=== PATIENT | female | born 1950 | race Caucasian/White ===

== ENCOUNTER 2020-07-17 13:51 | Outpatient (CLI) | payer MEDICARE, OTHER ==
[~2020-07-17] VITALS: Ht 175.3 cm; Wt 78.0 kg
[~2020-07-17 13:51] MED LIST: ACCUPRIL20 MG PO; ALBUTEROL2.5 MG/3 M INH; ALDACTONE25 MG PO; ALLEGRA ALLERG180 MG PO; CALTRATE 600 +1 EAC1 PO; CLARITIN10 MG PO; COLACE 100MG C100 MG PO; COREG 3.125M3.125 MG PO; DURAGESIC 12 M1 EACH TP; EVISTA60 MG PO; FISH OIL CONC1000 MG PO; FLAGYL500 MG PO; K-DUR TAB 20 M20 MEQ PO; LASIX40 MG PO; LIPITOR TAB 2020 MG PO; NEURONTIN 300300 MG PO; NORCO 5-325 TA1 EACH PO; ONCE DAILY1 EACH PO; PROTONIX 40 MG40 M1 PO; SPIRIVA RESPIMAT4 GM INH; SPIRIVA18 MCG INH; SYMBICORT 160-1 INHA INH; ULTRAM50 MG PO; VITAMIN D31000 UNI1 PO
[2020-07-17 14:28] LABS: HEMOGLOBIN 7.5 gm/dl (12.3-15.3)
== END 2020-07-17 23:52 | disposition home or self-care (01) ==
LOC: OPSV 13:51 → MED SURG 4 17:06 → OPSV 23:52
PROVIDERS: Internal Medicine
DX: D64.9 Anemia, unspecified (principal)
CPT/HCPCS: 36430; 85014; 85018; 86850; 86900; 86901; 86920; P9016

== ENCOUNTER 2020-08-26 21:41 | Inpatient (IN) | payer MEDICARE, SELFPAY ==
[~2020-08-26] VITALS: Ht 172.7 cm; Wt 66.7 kg
[2020-08-26 22:10] LABS: HEMOGLOBIN 9.2 gm/dl (12.3-15.3); RED BLOOD COUNT 2.83 M/UL (4.00-5.10)
[2020-08-26 22:29] LABS: BUN/CREATININE RATIO 26 (0-10)
[2020-08-26 22:45] LABS: WHITE BLOOD COUNT 35.3 K/UL (4.5-11.0)
[2020-08-27 06:41] LABS: WHITE BLOOD COUNT 15.8 K/UL (4.5-11.0)
[2020-08-27 06:42] LABS: HEMOGLOBIN 7.8 gm/dl (12.3-15.3); RED BLOOD COUNT 2.54 M/UL (4.00-5.10)
[2020-08-27 06:48] LABS: BUN/CREATININE RATIO 31 (0-10)
[2020-08-28 02:20] LABS: HEMOGLOBIN 7.9 gm/dl (12.3-15.3); RED BLOOD COUNT 2.47 M/UL (4.00-5.10)
[2020-08-28 02:24] LABS: WHITE BLOOD COUNT 11.5 K/UL (4.5-11.0)
[2020-08-28 02:46] LABS: BUN/CREATININE RATIO 39 (0-10)
[2020-08-29 02:29] LABS: BUN/CREATININE RATIO 25 (0-10)
[2020-08-29 02:51] LABS: HEMOGLOBIN 9.2 gm/dl (12.3-15.3)
[2020-08-29 02:53] LABS: RED BLOOD COUNT 2.97 M/UL (4.00-5.10); WHITE BLOOD COUNT 4.4 K/UL (4.5-11.0)
[2020-08-29] MEDS ORDERED: OMNICEF 300 MG300 MG PO (09:20)
== END 2020-08-29 13:47 | disposition home or self-care (01) | DRG 871 ==
LOC: ER1 21:41 → PROG CARE 23:24 → CDU 23:24 → PROG CARE 08-27 02:33
PROVIDERS: Emergency Medicine; ADMIT Internal Medicine
DX: A41.9 Sepsis, unspecified organism (principal); J96.21 Acute and chronic respiratory failure with hypoxia; I50.23 Acute on chronic systolic (congestive) heart failure; J18.9 Pneumonia, unspecified organism; D62 Acute posthemorrhagic anemia; J44.1 Chronic obstructive pulmonary disease with (acute) exacerbation; J44.0 Chronic obstructive pulmonary disease with (acute) lower respiratory infection; K92.2 Gastrointestinal hemorrhage, unspecified; I48.91 Unspecified atrial fibrillation; E87.6 Hypokalemia; I11.0 Hypertensive heart disease with heart failure; Z90.49 Acquired absence of other specified parts of digestive tract; Z87.891 Personal history of nicotine dependence; Z99.81 Dependence on supplemental oxygen; R65.20 Severe sepsis without septic shock
CPT/HCPCS: 0240U; 36415; 36430; 36600; 71045; 80048; 80053; 82550; 82553; 82803; 83605; 83690; 83735; 83874; 83880; 84100; 84132; 84484; 85025; 85027; 85610; 85730; 86850; 86900; 86901; 86920; 87040; 87070; 87077; 87186; 87205; 93005; 94640; 94664; 94760; 99285; G0378; J0456; J0696; J2930; J3475; J7030; J7050; P9016

== ENCOUNTER 2020-08-30 11:22 | Inpatient (IN) | payer MEDICARE, SELFPAY ==
[~2020-08-30] VITALS: Ht 167.6 cm; Wt 72.0 kg
[~2020-08-30 11:22] MED LIST changes: +OMNICEF 300 MG300 MG PO
[2020-08-30 12:14] LABS: HEMOGLOBIN 13.2 gm/dl (12.3-15.3); RED BLOOD COUNT 4.19 M/UL (4.00-5.10); WHITE BLOOD COUNT 21.7 K/UL (4.5-11.0)
[2020-08-30 12:46] LABS: BUN/CREATININE RATIO 20 (0-10)
[2020-08-30 20:46] LABS: BORDETELLA PARAPERTUSSIS Not Detected (Not Detectd); BORDETELLA PERTUSSIS Not Detected (Not Detectd); CHLAMYDIA PNEUMONIAE Not Detected (Not Detectd); CORONAVIRUS HKU1 Not Detected (Not Detectd); CORONAVIRUS NL63 Not Detected (Not Detectd); CORONAVIRUS OC43 Not Detected (Not Detectd); CORONOAVIRUS 229E Not Detected (Not Detectd); HUMAN METAPNEUMOVIRUS Not Detected (Not Detectd); HUMAN RHINOVIRUS/ENTEROVIRUS Not Detected (Not Detectd); INFLUENZA A Not Detected (Not Detectd); INFLUENZA B Not Detected (Not Detectd); MYCOPLASMA PNEUMONIAE Not Detected (Not Detectd); PARAINFLUENZA VIRUS 1 Not Detected (Not Detectd); PARAINFLUENZA VIRUS 2 Not Detected (Not Detectd); PARAINFLUENZA VIRUS 3 Not Detected (Not Detectd); PARAINFLUENZA VIRUS 4 Not Detected (Not Detectd); RESPIRATORY SYNCYTIAL VIRUS Not Detected (Not Detectd)
[2020-08-31 00:27] LABS: SARS-CoV-2 NOT DETECTED (Not Detectd)
[2020-08-31 06:10] LABS: RED BLOOD COUNT 3.85 M/UL (4.00-5.10)
[2020-08-31 06:14] LABS: WHITE BLOOD COUNT 11.2 K/UL (4.5-11.0)
[2020-08-31 06:29] LABS: BUN/CREATININE RATIO 29 (0-10)
[2020-09-01 04:57] LABS: RED BLOOD COUNT 3.91 M/UL (4.00-5.10)
[2020-09-01 05:02] LABS: WHITE BLOOD COUNT 18.1 K/UL (4.5-11.0)
[2020-09-01 05:10] LABS: BUN/CREATININE RATIO 30 (0-10)
[2020-09-02 05:17] LABS: HEMOGLOBIN 10.9 gm/dl (12.3-15.3); RED BLOOD COUNT 3.59 M/UL (4.00-5.10); WHITE BLOOD COUNT 7.4 K/UL (4.5-11.0)
[2020-09-02 05:42] LABS: BUN/CREATININE RATIO 35 (0-10)
[2020-09-02 12:15] LABS: ORGANISM ID Not indicated. (.); SPECIMEN SOURCE Urine (.); STREPTOCOCCUS PNEUMONIAE AG Negative (Negative)
[2020-09-03 05:21] LABS: HEMOGLOBIN 10.6 gm/dl (12.3-15.3); RED BLOOD COUNT 3.44 M/UL (4.00-5.10)
[2020-09-03 05:33] LABS: WHITE BLOOD COUNT 9.3 K/UL (4.5-11.0)
[2020-09-03 05:51] LABS: BUN/CREATININE RATIO 33 (0-10)
[2020-09-04 04:42] LABS: HEMOGLOBIN 11.8 gm/dl (12.3-15.3)
[2020-09-04 04:55] LABS: RED BLOOD COUNT 3.82 M/UL (4.00-5.10); WHITE BLOOD COUNT 12.7 K/UL (4.5-11.0)
[2020-09-04 04:59] LABS: BUN/CREATININE RATIO 33 (0-10)
--- NOTE | 2020-09-04 19:41 | NUR ---
1900 PT O2SAT IN 80'S ON AIRVO, PLACED ON BIPAP--STILL READING IN 80'S, RESPIRATORY CALLED, INCREASED O2 TO 100% ON BIPAP, CALLED DR ISBELL, ORDERS REC'D, ABG DONE, 2 NEW IV'S STARTED. AFTER ABG DR ISBELL NOTIIFIED OF RESULTS, NEW ORDERS REC'D TO KEEP PT ON UNIT.
[2020-09-05 02:29] LABS: HEMOGLOBIN 12.4 gm/dl (12.3-15.3); RED BLOOD COUNT 3.99 M/UL (4.00-5.10)
[2020-09-05 02:32] LABS: WHITE BLOOD COUNT 17.8 K/UL (4.5-11.0)
[2020-09-05 02:53] LABS: BUN/CREATININE RATIO 28 (0-10)
[2020-09-06 02:15] LABS: RED BLOOD COUNT 3.88 M/UL (4.00-5.10); WHITE BLOOD COUNT 16.3 K/UL (4.5-11.0)
[2020-09-06 02:31] LABS: BUN/CREATININE RATIO 27 (0-10)
--- NOTE | 2020-09-06 23:20 | NUR ---
REPORT CALLED TO ROHITH WESLEY IN ICU. PT TRANSFERRED TO ICU ROOM 2126 VIA BED, BIPAP, AND MONITOR.
[2020-09-07 04:15] LABS: HEMOGLOBIN 13.5 gm/dl (12.3-15.3)
[2020-09-07 04:26] LABS: RED BLOOD COUNT 4.3 M/UL (4.00-5.10); WHITE BLOOD COUNT 40.2 K/UL (4.5-11.0)
[2020-09-07 04:57] LABS: BUN/CREATININE RATIO 31 (0-10)
[2020-09-08 04:23] LABS: HEMOGLOBIN 12.1 gm/dl (12.3-15.3); RED BLOOD COUNT 3.92 M/UL (4.00-5.10)
[2020-09-08 04:53] LABS: BUN/CREATININE RATIO 31 (0-10)
[2020-09-08 04:55] LABS: WHITE BLOOD COUNT 40.5 K/UL (4.5-11.0)
[2020-09-09 05:20] LABS: HEMOGLOBIN 10.9 gm/dl (12.3-15.3); RED BLOOD COUNT 3.54 M/UL (4.00-5.10)
[2020-09-09 05:36] LABS: WHITE BLOOD COUNT 34.6 K/UL (4.5-11.0)
[2020-09-10 04:40] LABS: HEMOGLOBIN 9.8 gm/dl (12.3-15.3)
[2020-09-10 04:52] LABS: RED BLOOD COUNT 3.18 M/UL (4.00-5.10); WHITE BLOOD COUNT 36.6 K/UL (4.5-11.0)
== END 2020-09-10 14:44 | disposition expired | DRG 870 ==
LOC: ER1 11:22 → PROG CARE 13:52 → CCU 13:52 → CDU 13:52 → CCU 17:10 → PROG CARE 09-04 10:18 → CCU 09-06 23:25
PROVIDERS: Emergency Medicine; Family Medicine; Internal Medicine Infectious Disease; Internal Medicine Pulmonary Disease; ADMIT Internal Medicine
PROC: 0BH17EZ Insertion of Endotracheal Airway into Trachea, Via Natural or Artificial Opening (ICD-10-PCS; principal; 2020-08-30)
PROC: 5A1955Z Respiratory Ventilation, Greater than 96 Consecutive Hours (ICD-10-PCS; principal; 2020-08-30)
PROC: 3E0333Z Introduction of Anti-inflammatory into Peripheral Vein, Percutaneous Approach (ICD-10-PCS; 2020-08-30)
PROC: 3E033XZ Introduction of Vasopressor into Peripheral Vein, Percutaneous Approach (ICD-10-PCS; 2020-08-30)
PROC: 0B9J8ZX Drainage of Left Lower Lung Lobe, Via Natural or Artificial Opening Endoscopic, Diagnostic (ICD-10-PCS; 2020-08-30)
PROC: B24BZZ4 Ultrasonography of Heart with Aorta, Transesophageal (ICD-10-PCS; 2020-08-31)
PROC: 5A09457 Assistance with Respiratory Ventilation, 24-96 Consecutive Hours, Continuous Positive Airway Pressure (ICD-10-PCS; 2020-09-01)
PROC: 05HM33Z Insertion of Infusion Device into Right Internal Jugular Vein, Percutaneous Approach (ICD-10-PCS; 2020-09-07)
PROC: B543ZZA Ultrasonography of Right Jugular Veins, Guidance (ICD-10-PCS; 2020-09-07)
DX: A41.51 Sepsis due to Escherichia coli [E. coli] (principal); R65.21 Severe sepsis with septic shock; J96.21 Acute and chronic respiratory failure with hypoxia; J96.22 Acute and chronic respiratory failure with hypercapnia; J69.0 Pneumonitis due to inhalation of food and vomit; I50.33 Acute on chronic diastolic (congestive) heart failure; J15.5 Pneumonia due to Escherichia coli; J44.1 Chronic obstructive pulmonary disease with (acute) exacerbation; G93.1 Anoxic brain damage, not elsewhere classified; J44.0 Chronic obstructive pulmonary disease with (acute) lower respiratory infection; Z99.11 Dependence on respirator [ventilator] status; R64 Cachexia; E87.2 Acidosis; I42.8 Other cardiomyopathies; I47.1 Supraventricular tachycardia; N17.9 Acute kidney failure, unspecified; Z20.822 Contact with and (suspected) exposure to COVID-19; T38.0X5A Adverse effect of glucocorticoids and synthetic analogues, initial encounter; I73.9 Peripheral vascular disease, unspecified; Z96.653 Presence of artificial knee joint, bilateral; I11.0 Hypertensive heart disease with heart failure; F51.04 Psychophysiologic insomnia; G89.4 Chronic pain syndrome; I48.0 Paroxysmal atrial fibrillation; F41.9 Anxiety disorder, unspecified; M19.90 Unspecified osteoarthritis, unspecified site; I27.20 Pulmonary hypertension, unspecified; I50.811 Acute right heart failure; Z79.01 Long term (current) use of anticoagulants; I25.2 Old myocardial infarction; Z90.49 Acquired absence of other specified parts of digestive tract; Z90.710 Acquired absence of both cervix and uterus; Z87.891 Personal history of nicotine dependence; Z82.49 Family history of ischemic heart disease and other diseases of the circulatory system; Z88.6 Allergy status to analgesic agent; Z88.1 Allergy status to other antibiotic agents; Z88.5 Allergy status to narcotic agent; Z88.2 Allergy status to sulfonamides; Z88.8 Allergy status to other drugs, medicaments and biological substances; Z86.14 Personal history of Methicillin resistant Staphylococcus aureus infection; Z68.29 Body mass index [BMI] 29.0-29.9, adult
CPT/HCPCS: ECHO; 0240U; 31500; 36415; 36600; 70450; 71045; 71275; 80048; 80053; 81001; 82140; 82550; 82553; 82803; 83605; 83615; 83735; 83874; 83880; 84100; 84132; 84443; 84484; 85007; 85025; 85027; 86140; 87015; 87040; 87070; 87077; 87086; 87116; 87186; 87205; 87206; 87278; 87449; 87633; 87899; 93005; 93306; 93970; 94002; 94003; 94640; 94660; 94664; 94760; 97162; 97166; 97530-GP-CQ; 99285; A6212; C1751; C9113; J0330; J0360; J1100; J1120; J1160; J1205; J1335; J1650; J1940; J2020; J2060; J2250; J2405; J2543; J2704; J2760; J2920; J3370; J7040; J7070; P9047; Q9967